=== PATIENT | female | born 1935 | race Caucasian/White ===

== ENCOUNTER 2017-06-21 20:17 | Emergency (ER) | payer MEDICARE, OTHER ==
[~2017-06-21] VITALS: Ht 162.6 cm; Wt 82.5 kg
[2017-06-21 20:21] VITALS: Ht 162.6 cm; Wt 82.5 kg
[2017-06-21] MEDS ORDERED: ASPI-664 PO (23:00)
[2017-06-21] MEDS ORDERED: IBUP800T25 PO (23:00)
[2017-06-21] MEDS ORDERED: METO-429 PO (23:00)
[2017-06-21] MEDS ORDERED: MIRT15TA5 PO (23:00)
[2017-06-21] MEDS ORDERED: LISI10TA2 PO (23:00)
[2017-06-21] MEDS ORDERED: ATOR10TA65 PO (23:00)
[2017-06-21] MEDS ORDERED: CALC-634 PO (23:00)
[2017-06-21] MEDS ORDERED: FER325 PO (23:00)
[2017-06-21] MEDS ORDERED: ALEN35TA23 PO (23:00)
[2017-06-21] MEDS ORDERED: ERGO500037 PO (23:00)
[2017-06-21] MEDS ORDERED: OMEP40CA6 PO (23:00)
[2017-06-21] MEDS ORDERED: AMLO5TAB4 PO (23:00)
[2017-06-21 23:10] LABS: ADD UMIC YES; UR ASCORBIC ACID NEGATIVE (NEGATIVE); UR BACTERIA MANY /HPF (NONE SEEN); UR BILIRUBIN (Dip) NEGATIVE (NEGATIVE); UR BLOOD (Dip) 1+ mg/dL (NEGATIVE); UR CLARITY SLIGHTLY CLOUDY (CLEAR); UR COLOR YELLOW (YELLOW); UR GLUCOSE (Dip) 1+ mg/dL (NEGATIVE); UR KETONES (Dip) NEGATIVE (NEGATIVE); UR LEUKOCYTE ESTERASE (Dip) 2+ Leu/ul (NEGATIVE); UR MUCUS FEW /HPF (NONE SEEN); UR NITRITE (Dip) POSITIVE (NEGATIVE); UR RBC 2 /HPF (0-5); UR SPECIFIC GRAVITY (Dip) 1.014 (1.003-1.030); UR TOTAL PROTEIN (Dip) 2+ mg/dl (NEGATIVE); UR UROBILINOGEN (Dip) NEGATIVE (NEGATIVE)
[2017-06-22] MEDS ORDERED: CIPR500T4 PO (01:10)
--- NOTE | 2017-06-22 01:40 | RADRPT ---
PROCEDURE: CT abdomen and pelvis without intravenous contrast. CLINICAL INDICATION: Pain. TECHNIQUE: CT of the abdomen/pelvis was performed utilizing axial images with reconstructions in s agittal and coronal planes. The administered radiation dose is CTDI 22 mGy, DLP 122 mGy-cm. COMPARISON: No pertinent prior examinations were submitted for comparison. FINDINGS: Visualized Chest: There is mild atelectasis in the lung bases. There is moderate cardiomegaly. Cor onary artery and cardiac valvular calcifications are noted. Abdomen: The liver, spleen, pancreas, and right adrenal gland are unremarkable. Prior cholecystectomy is n oted. There is a 10 mm fat attenuating nodule within the lateral limb of the left adrenal gland. The kidneys are without hydronephrosis. No definite urinary calculi are seen. There is no evidence of bowel obstruction. The appendix is normal. No intra-abdominal free air is seen. Numerous diverticula are noted throughout the colon without evidence of diverticulitis. Some sutures are noted along the sigmoid colon, likely due to previous partial sigmoid colonic resection . There is no evidence of intra-abdominal adenopathy or free fluid. Pelvis: There is no evidence of pelvic adenopathy. The uterus and ovaries are without enlargement. The uri nary bladder is unremarkable. There is no pelvic free fluid. Osseous structures: Unremarkable. IMPRESSION: No acute findings. Hepatic steatosis. Colonic diverticulosis. Small left adrenal myelolipoma. RPTAT: HIKT .Kurtis Pfeiffer MD, Date Time Electronically viewed and signed by .Kurtis Pfeifefr MD, on 06/22/2017 01:40 .T/
[2017-06-22 01:50] VITALS: BP 195/92; PULSE 73; RESP 18
--- NOTE | 2017-06-22 01:50 | ERD ---
ER Documentation Chief Complaint Date/Time DATE: 06/22/17 TIME: 01:48 Chief Complaint urinary retention x 1 day, back pain w/ htn HPI This 81-year-old female comes her urinary pain and mild attention for the past day. She says she is able to pee but she is unable to completely evacuate and feels like she always needs to go to the bathroom. No fevers no chills no nausea no vomiting no other current complaints ROS All systems reviewed and are negative except as per history of present illness. Medications Home Meds Active Scripts Ciprofloxacin Hcl* (Ciprofloxacin Hcl*) 500 Mg Tablet, 500 MG PO BID for 7 Days , TAB Prov:MARI DUGAN 06/22/17 Reported Medications Omeprazole* (Omeprazole*) 40 Mg Capsule.dr, 40 MG PO DAILY, #30 CAP 06/21/17 Mirtazapine* (Mirtazapine*) 15 Mg Tablet, 15 MG PO HS, TAB 06/21/17 Aspirin* (Aspirin* EC) 81 Mg Tablet.dr, 81 MG PO DAILY, TAB 06/21/17 Ferrous Sulfate* (Ferrous Sulfate*) 325 Mg Tabec, 325 MG PO DAILY, TAB 06/21/17 Lisinopril* (Lisinopril*) 10 Mg Tablet, 10 MG PO BID, #30 TAB 06/21/17 Atorvastatin Calcium (Atorvastatin Calcium) 10 Mg Tablet, 10 MG PO QHS, #30 TAB 06/21/17 Alendronate Sodium* (Alendronate Sodium*) 35 Mg Tablet, 35 MG PO Q7D, #4 TAB 06/21/17 Ergocalciferol (Vitamin D2) (VITAMIN D2) 50,000 Unit Capsule, 96441 UNIT PO, CAP 06/21/17 Amlodipine Besylate* (Norvasc*) 5 Mg Tablet, 5 MG PO DAILY, TAB 06/21/17 Calcium Carbonate/Vitamin D3 (OYSTERCAL-D 500 MG-400 UNIT TB) 1 Each Tablet, 1 EACH PO BID, TAB 06/21/17 Metoprolol Tartrate* (Lopressor*) 50 Mg Tab, 50 MG PO BID, #60 TAB 06/21/17 Ibuprofen* (Ibuprofen*) 800 Mg Tab, 800 MG PO Q6H Y for PAIN, TAB 06/21/17 Allergies Allergies: Uncoded Allergies: UNKNOWN ANTIBIOTIC (Allergy, Mild, RASH, 12/12/13) Physical Exam Vitals Vital Signs Date Time Temp Pulse Resp B/P Pulse Ox O2 Delivery O2 Flow Rate FiO2 06/21/17 22:41 73 21 169/80 99 Room Air 06/21/17 20:21 98.3 81 20 190/71 97 Physical Exam Const: [] Head: Atraumatic Eyes: Normal Conjunctiva ENT: Normal External Ears, Nose and Mouth. Neck: Full range of motion..~ No meningismus. Resp: Clear to auscultation bilaterally Cardio: Regular rate and rhythm, no murmurs Abd: Soft, non tender, non distended. Normal bowel sounds Skin: No petechiae or rashes Back: No midline or flank tenderness Ext: No cyanosis, or edema Neur: Awake and alert Psych: Normal Mood and Affect Results 24 hrs Laboratory Tests Test 06/21/17 22:38 Urine Color YELLOW Urine Clarity SLIGHTLY CLOUDY Urine pH 5.0 Urine Specific [place] 1.014 Urine Ketones NEGATIVEmg/dL Urine Nitrite POSITIVEmg/dL Urine Bilirubin NEGATIVEmg/dL Urine Urobilinogen NEGATIVEmg/dL Urine Leukocyte Esterase 2+Fabián/ul Urine Microscopic RBC 2/HPF Urine Microscopic WBC 62/HPF Urine Bacteria MANY/HPF Urine Mucus FEW/HPF Urine Hemoglobin 1+mg/dL Urine Glucose 1+mg/dL Urine Total Protein 2+mg/dl Procedures/MDM Medical decision-makin-year-old female here with abdominal pain. Likely secondary to UTI and early pyelonephritis. Patient tolerating p.o. and stable for outpatient management. Patient will be discharged home with prescription. Follow with PCP. Return for worsening symptoms. Return here in 8 hours for serial abdominal exams EKG: Rate/Rhythm: [Normal Sinus Rhythm] QRS, ST, T-waves: [No changes consistent w/ acute ischemia] Impression: [No evidence of ischemia or arrhythmia] Departure Diagnosis: Primary Impression: UTI (urinary tract infection) Urinary tract infection type: acute cystitis Hematuria presence: without hematuria Qualified Code: N30.00 - Acute cystitis without hematuria Condition: Stable Patient Instructions: Urinary Tract Infections in Women MARI DUGAN Jun 22, 2017 01:50
[2017-06-22 02:18] LABS: ALBUMIN 4.2 g/dl (3.3-4.9); ALBUMIN/GLOBULIN RATIO 1.07; BILIRUBIN,INDIRECT 0.2 mg/dl (0-1.1); BILIRUBIN,TOTAL 0.2 mg/dl (0.2-1.3); CALCIUM 8.8 mg/dl (8.4-10.2); POTASSIUM 4.7 mmol/L (3.5-5.1); TOTAL PROTEIN 8.1 g/dl (6.1-8.1)
[2017-06-22 02:24] LABS: BASOPHILS % 0.4 % (0.0-2.0); EOSINOPHILS # 0.1 10^3/ul (0.0-0.5); EOSINOPHILS % 1.3 % (0.0-7.0); HEMATOCRIT 33.1 % (37.0-47.0); HEMOGLOBIN 10.6 g/dl (12.0-16.0); LYMPHOCYTES % 20.9 % (15.0-51.0); MEAN CORPUSCULAR HEMOGLOBIN 29.4 pg (29.0-33.0); MEAN CORPUSCULAR VOLUME 91.9 fl (82.0-101.0); MEAN PLATELET VOLUME 10.8 fl (7.4-10.4); MONOCYTE # 0.5 10^3/ul (0.3-0.9); NEUTROPHIL # 6.8 10^3/ul (1.6-7.5); NEUTROPHILS % 71.2 % (39.0-77.0); PLATELET COUNT 256 10^3/UL (140-415); RED CELL DISTRIBUTION WIDTH 14.3 % (11.5-14.5); WHITE BLOOD COUNT 9.5 10^3/ul (4.8-10.8)
== END 2017-06-22 01:50 | disposition home or self-care (01) ==
LOC: E/R 20:17
DX: N30.00 Acute cystitis without hematuria (principal); I10 Essential (primary) hypertension; Z79.82 Long term (current) use of aspirin
CPT/HCPCS: 36415; 74176; 80053; 81001; 83690; 84484; 85025; 87086; 93005